=== PATIENT | male | born 1985 | race Hispanic/Latino ===

== ENCOUNTER 2023-08-27 03:47 | Emergency (ER) | payer OTHER ==
[~2023-08-27] VITALS: Ht 167.6 cm; Wt 104.3 kg
[2023-08-27] MEDS ORDERED: IBUP-1493 PO (04:55)
[2023-08-27] MEDS ORDERED: POLYOS OD (04:55)
[2023-08-27 05:01] VITALS: BP 123/83; PULSE 62; RESP 17; O2SAT 99
== END 2023-08-27 05:04 | disposition home or self-care (01) ==
LOC: EDH 03:47
DX: H10.30 Unspecified acute conjunctivitis, unspecified eye (principal); Z90.49 Acquired absence of other specified parts of digestive tract; Z98.890 Other specified postprocedural states

== ENCOUNTER 2025-03-03 22:44 | Emergency (ER) | payer SELFPAY ==
[~2025-03-03] VITALS: Ht 167.6 cm; Wt 99.8 kg
[~2025-03-03 22:44] MED LIST: IBUP-1493 PO; POLYOS OD
[2025-03-03] MEDS ORDERED: CLIN-141 PO (23:22)
--- NOTE | 2025-03-03 23:24 | ERN ---
General Chief Complaint: Abscess Stated Complaint: ABSCESS TO GENITLE Time Seen by MD: 22:50 History of Present Illness Initial Comments Patient is a healthy 40-year-old male who has sudden appearance of a tender mass associated with a his scrotal septum. The mass has been present for just one day. Patient has a history of skin abscesses and he was wondering if this is a new one. Timing/Duration: 24 hours Allergies: Coded Allergies: No Known Allergies (Unverified Allergy, Unknown, 08/27/23) Home Meds Active Scripts Ibuprofen (Motrin/Advil) 800 Mg Tab, 800 MG PO TIDP PRN for PAIN, #30 TAB Prov:JOS CASTILLO MD 08/27/23 Polymyxin B Sulfate/Tmp (Polytrim Ophth Soln) 10,000 Unit-1 Mg/Ml Opsol, 2 DROP OD 5X/DAY, #10 ML Prov:JOS CASTILLO MD 08/27/23 Past Medical History Past Medical History: No Pertinent History Past Surgical History: Appendectomy Surgical History Other: LEFT KNEE Family History Family History: Negative Social History Social History: Negative, Lives with family Constitutional: (-) chills, (-) diaphoresis, (-) fever, (-) malaise, (-) weakness, (-) other documentation Genitourinary: (-) penile discharge, (-) dysuria, (-) frequency, (-) hematuria, (-) pain, (-) other documentation Physical Exam General Appearance: (+) mild distress Orientation: (+) alert Head/Face Trauma: No Eye: bilateral eye normal inspection, bilateral eye PERRL, bilateral eye EOMI Genital: (+) other documentation (The mass is oblong in nature white in color and mildly tender. There was no surrounding erythema. It is deep to the skin. Patient's hernia exam is negative bilaterally with no epididymitis. The mass is not adherent to either of the testes and is contained within the scrotal skin.) MDM The mass most likely is a sebaceous cyst. I can not tell if it is uninfected. I will give the patient some antibiotics. He needs a referral to a urologist. ED Course Vital Signs Date Time Temp Pulse Resp B/P (MAP) Pulse Ox O2 Delivery O2 Flow Rate FiO2 03/03/25 22:47 98.1 70 19 152/81 99 Room Air 0 DX & DISP Disposition: Discharge Departure Impression: Primary Impression: Scrotal sebaceous cyst Additional Impression: Epidermoid cyst of skin of scrotum Condition: Stable Scripts Clindamycin HCl (Clindamycin HCl) 300 Mg Capsule 1 CAP PO TID for 10 Days, #30 CAP 0 Refills Prov: GENIE CASAS MD 03/03/25 Additional Instructions: You have a mass in your scrotum which I think is more associated with the skin as opposed to your testicles or epididymis. It could be an epidermoid cyst or a sebaceous cyst. It is tender which is to be expected it is not obvious to me that it is infected however I will give you some p.o. antibiotics just in case it is an early infection. I will fill out a recommendation form for a urology consult. Or a general surgery consult. I will send a prescription for clindamycin to your pharmacy. The pain can be treated with alternating ibuprofen and Tylenol. Please return to the emergency room if the mass gets larger and pain more painful and red indicating a true infection while you are taking the antibiotics please return to the emergency room. If the redness and swelling extends outside of the scrotal sac and into the soft tissues surrounding it like your abdominal wall please return to the emergency room. I have provided for you the office number for a urologist who could help excise this mass. If they are unable to see you with this note I am stating that you need a referral to a urologist for definitive treatment of this mass. Referrals: SELF,REFERRAL (PCP) KAM COBOS MD, GORDON K MD Mar 03, 2025 23:24
[2025-03-03 23:46] VITALS: BP 148/84; PULSE 72; RESP 18; TEMP 98.4; O2SAT 99
== END 2025-03-03 23:47 | disposition home or self-care (01) ==
LOC: EDH 22:44
DX: L72.3 Sebaceous cyst (principal); Z90.49 Acquired absence of other specified parts of digestive tract; Z79.899 Other long term (current) drug therapy
CPT/HCPCS: 99283